=== PATIENT | female | born 1975 | race Caucasian/White ===

== ENCOUNTER 2024-12-31 10:56 | Emergency (ER) | payer MEDICAID ==
[~2024-12-31] VITALS: Ht 167.6 cm; Wt 70.0 kg
[2024-12-31 11:02] VITALS: BP 118/88; RESP 18; TEMP 36.8; O2SAT 100
[2024-12-31 11:07] VITALS: PULSE 78; O2SAT 98
[2024-12-31 12:20] LABS: BASOPHILS % 0.9 % (0.0-2.0); EOSINOPHILS % 1.6 % (0.0-5.0); HEMATOCRIT. 39.4 % (36.0-48.0); HEMOGLOBIN. 13.3 g/dL (12.0-16.0); LYMPHOCYTES % 27.2 % (20.0-50.0); MEAN PLATELET VOLUME 7.5 fl (7.4-10.4); MONOCYTES % 6.3 % (2.0-8.0); NEUTROPHILS % 64.0 % (40.0-76.0); PLATELET 325 x1000/uL (130-400); RED BLOOD CELL COUNT 4.31 mill/uL (4.2-5.4); RED CELL DISTRIBUTION WIDTH 14.4 % (11.6-14.6)
[2024-12-31 12:41] LABS: CREATININE 0.7 mg/dL (0.6-1.0); UREA NITROGEN BLOOD 14 mg/dL (9-23)
[2024-12-31 12:42] LABS: TROPONIN I HIGH SENSITIVITY < 4 ng/L (3.0-34)
== END 2024-12-31 15:00 | disposition left against medical advice (07) ==
LOC: ER 10:56
DX: R07.89 Other chest pain (principal); R06.09 Other forms of dyspnea
CPT/HCPCS: 36415; 71045; 80048; 84484; 85025; 93005; 99285